=== PATIENT | male | born 1985 | race African-American/Black ===

== ENCOUNTER 2018-09-08 11:54 | Emergency (ER) | payer BC, OTHER ==
[2018-09-08 11:59] VITALS: BMI 32.5
--- NOTE | 2018-09-08 13:05 | PDOC ---
History of Present Illness - General Chief Complaint: Abscess Boil Stated Complaint: CYST Time Seen by Provider: 09/08/18 12:51 - History of Present Illness Initial Comments: 09/08/18 13:06 33-year-old male with a past medical history significant for diabetes presents for evaluation of right scrotal pain and asked 3 days. He had a fever on day 1 his fever since resolved. His mother is a nurse and gave him Augmentin and bacitracin to apply to the area. Past History - Past Medical History Allergies/Adverse Reactions: Allergies Allergy/AdvReac Type Severity Reaction Status Date / Time No Known Allergies Allergy Verified 09/08/18 11:57 Home Medications: Ambulatory Orders Amox-Tr/K Cl [Augmentin - 875Mg Tablet] 1 tab PO BID 09/08/18 Amox-Tr/K Cl [Augmentin - 875Mg Tablet] 1 tab PO BID #20 tablet 09/08/18 Metformin HCl [Glucophage] 1,000 mg PO BID 09/08/18 COPD: No Diabetes: Yes - Surgical History Appendectomy: Yes - Immunization History Immunization Up to Date: Yes - Suicide/Smoking/Psychosocial Hx Smoking History: Current every day smoker Have you smoked in the past 12 months: No Number of Cigarettes Smoked Daily: 10 Cigars Per Day: 0 Information on smoking cessation initiated: No 'Breaking Loose' booklet given: 06/11/13 Hx Alcohol Use: No Substance Use Type: None Review of Systems - Review of Systems : Yes: See HPI, Lesions *Physical Exam - Vital Signs Last Vital Signs Temp Pulse Resp BP Pulse Ox 98.1 F 87 18 118/77 99 09/08/18 11:57 09/08/18 11:57 09/08/18 11:57 09/08/18 11:57 09/08/18 11:57 - Physical Exam Comments: 09/08/18 13:07 There is erythemic warm indurated area about 4 cm circumferentially encompassing the right scrotum. ED Treatment Course - LABORATORY CBC & Chemistry Diagram: 09/08/18 15:05 09/08/18 15:05 Medical Decision Making - Medical Decision Making 09/08/18 13:00 Urology called for follow up, awaiting call back 09/08/18 13:43 2nd call placed 09/08/18 15:10 discussed with urology about 30 minutes ago, US report sent to urology for review, Dr Caruso 09/08/18 16:46 Discussed with urology and pt will be seen as an out patient 09/[address] Caruso will send script for Augmentin as pre urology recommendation 09/08/18 16:47 Treating BS of 330 with 6 units of insulin *DC/Admit/Observation/Transfer Diagnosis at time of Disposition: Scrotal abscess - Discharge Dispostion Disposition: HOME Condition at time of disposition: Stable Decision to Admit order: No - Referrals Referrals: Kayden Caruso MD [Staff Physician] - - Patient Instructions Printed Discharge Instructions: DI for Scrotal Abscess Additional Instructions: Return to the emergency room for worsening symptoms. Follow-up with urology on Thursday. He must call make an appointment tomorrow and be sure to tell the office she was seen in the emergency room and he need follow-up for your abscess. Please take the Augmentin as directed. I've centimeter prescription in for you. Return to the emergency room for worsening symptoms warm compresses 5- 6 times a day. Tylenol for pain. Leese take the Tylenol as directed. - Post Discharge Activity
[2018-09-08] MEDS ORDERED: CLINDAMYCIN 600MG PREMIX IVPB 600 MG/50 ML BAG IVPB ONE ×2 (14:37→15:11)
[2018-09-08 15:20] LABS: BASO % 0.4 % (0-2.0); EOS % 2.1 % (0-4.5); HEMOGLOBIN 13.7 GM/dL (11.7-16.9); LYMPH % 31.5 % (8-40); MCHC 32.5 g/dl (32.0-35.9); MEAN PLT VOLUME 7.5 fl (7.5-11.1); MONO % 7.6 % (3.8-10.2); NEUT % 58.4 % (42.8-82.8); PLATELET COUNT 235 K/MM3 (134-434); RBC 4.89 M/mm3 (4.00-5.60); RDW 13.3 % (11.9-15.9)
[2018-09-08 15:47] LABS: ALBUMIN 3.6 g/dl (3.4-5.0); ALK PHOS 104 U/L (45-117); ANION GAP 6 MMOL/L (8-16); BILIRUBIN,TOTAL 0.3 mg/dL (0.2-1); BLOOD UREA NITROGEN 12 mg/dL (7-18); CALCIUM 9.2 mg/dL (8.5-10.1); CHLORIDE 100 mmol/L (98-107); CO2 27 mmol/L (21-32); CREATININE 0.7 mg/dL (0.55-1.3); POTASSIUM 4.6 mmol/L (3.5-5.1); SGOT/AST 11 U/L (15-37); SGPT/ALT 18 U/L (13-61); SODIUM 134 mmol/L (136-145); TOT PROT 7.4 g/dl (6.4-8.2)
[2018-09-08 15:59] LABS: GLUCOSE,RANDOM 330 mg/dL (74-106)
[2018-09-08] MEDS ORDERED: INSULIN SLIDING SCALE (NOVOLOG) 1 VIAL SQ SCH (16:30)
[2018-09-08] MEDS ORDERED: INSULIN REGULAR HUMAN 100 UNITS/ML *VIAL SQ ONE (16:34)
[2018-09-08] MEDS ORDERED: INSULIN (NOVOLOG) ASPART 100 UNITS/ML 10ML VIAL ONE (16:39)
[2018-09-08 16:53] VITALS: BP 109/55; PULSE 85; TEMP 98.4
== END 2018-09-08 17:18 | disposition home or self-care (01) ==
LOC: JERFT 11:54
PROC: 3E03329 Introduction of Other Anti-infective into Peripheral Vein, Percutaneous Approach (ICD-10-PCS; principal; 2018-09-08)
PROC: 3E013VG Introduction of Insulin into Subcutaneous Tissue, Percutaneous Approach (ICD-10-PCS; 2018-09-08)
DX: N50.82 Scrotal pain (principal); N49.2 Inflammatory disorders of scrotum; F17.210 Nicotine dependence, cigarettes, uncomplicated; E11.9 Type 2 diabetes mellitus without complications
CPT/HCPCS: 36415; 76870-TC; 80053; 82962; 85025; 99281-25